=== PATIENT | female | born 1970 | race Caucasian/White ===

== ENCOUNTER → 2020-07-08 | Outpatient (CLI) | payer OTHER ==
[~2020-07-08] MED LIST: COLACE 100MG C100 MG PO; EXCEDRIN MIGRA1 EACH PO; FLUZONE QU60 MCG/015 IM; IBUPROFEN600 MG PO; NORCO 5-325 TA1 EACH PO; NORCO 7.5-3251 EACH PO; ONDANSETRON ODT4 MG PO; OSTERA TABLET1 EACH PO; PROTONIX40 MG PO; TAMIFLU75 MG PO; ZITHROMAX500 MG PO
[2020-07-08 12:08] LABS: HEMOGLOBIN 13.8 gm/dl (12.3-15.3); RED BLOOD COUNT 4.64 M/UL (4.00-5.10); WHITE BLOOD COUNT 7.3 K/UL (4.5-11.0)
[2020-07-08 12:34] LABS: BUN/CREATININE RATIO 23 (0-10)
[2020-07-09 08:15] LABS: VITAMIN D, 25-HYDROXY 65.6 ng/mL (30.0-100.0)
== END ==
LOC: LAB 10:46
PROVIDERS: Family Medicine
DX: E78.5 Hyperlipidemia, unspecified (principal); E55.9 Vitamin D deficiency, unspecified
CPT/HCPCS: 36415; 80053; 80061; 84439; 84443; 84481; 85027

== ENCOUNTER → 2020-07-14 | Outpatient (CLI) | payer OTHER | LOC: RT 11:14 | DX: I48.0 Paroxysmal atrial fibrillation (principal); R00.2 Palpitations ==

== ENCOUNTER → 2020-07-28 | Outpatient (CLI) | payer OTHER | LOC: MAMO 08:25 | DX: Z12.31 Encounter for screening mammogram for malignant neoplasm of breast (principal); Z78.0 Asymptomatic menopausal state | CPT/HCPCS: 77063; 77067 ==

== ENCOUNTER → 2020-07-29 | Outpatient (CLI) | payer OTHER | LOC: CT 08:23 | DX: N20.0 Calculus of kidney (principal); R31.9 Hematuria, unspecified | CPT/HCPCS: Q9963; Q9967 ==

== ENCOUNTER 2021-08-02 18:28 | Emergency (ER) | payer OTHER | END 2021-08-02 21:32 | disposition home or self-care (01) | LOC: ER1 18:28 | DX: S89.92XA Unspecified injury of left lower leg, initial encounter (principal); X50.9XXA Other and unspecified overexertion or strenuous movements or postures, initial encounter; Y92.009 Unspecified place in unspecified non-institutional (private) residence as the place of occurrence of the external cause | CPT/HCPCS: 29530; 73564; 99283 ==

== ENCOUNTER → 2021-08-12 | Outpatient (CLI) | payer OTHER | LOC: KOH-I 10:14 | DX: S83.512A Sprain of anterior cruciate ligament of left knee, initial encounter (principal); S83.422A Sprain of lateral collateral ligament of left knee, initial encounter; M67.48 Ganglion, other site | CPT/HCPCS: 73721 ==

== ENCOUNTER → 2021-10-01 | Outpatient (CLI) | payer OTHER | LOC: HEART 5 15:29 | DX: R07.9 Chest pain, unspecified (principal); R53.83 Other fatigue; R06.02 Shortness of breath; I08.1 Rheumatic disorders of both mitral and tricuspid valves | CPT/HCPCS: 93306 ==

== ENCOUNTER 2021-12-29 08:38 | Emergency (ER) | payer OTHER ==
[2021-12-29 10:11] LABS: HEMOGLOBIN 14.3 gm/dl (12.3-15.3); RED BLOOD COUNT 4.69 M/UL (4.00-5.10); WHITE BLOOD COUNT 9.5 K/UL (4.5-11.0)
[2021-12-29 10:29] LABS: BUN/CREATININE RATIO 29 (0-10)
[2021-12-29] MEDS ORDERED: IBUPROFEN600 MG PO (13:11)
[2021-12-29] MEDS ORDERED: CYCLOBENZAPRINE10 MG PO (13:11)
== END 2021-12-29 13:16 | disposition home or self-care (01) ==
LOC: ER1 08:38
PROVIDERS: Physician Assistant
DX: M54.50 Low back pain, unspecified (principal); Z87.442 Personal history of urinary calculi; I10 Essential (primary) hypertension; Z90.89 Acquired absence of other organs; Z90.49 Acquired absence of other specified parts of digestive tract; Z20.822 Contact with and (suspected) exposure to COVID-19
CPT/HCPCS: 80053; 81001; 85025; 87086; 96374; 96375; 99284; J2405; Q9967; U0002

== ENCOUNTER 2022-01-03 18:05 | Emergency (ER) | payer OTHER ==
[~2022-01-03 18:05] MED LIST changes: +CYCLOBENZAPRINE10 MG PO
[2022-01-03 19:13] LABS: HEMOGLOBIN 13.8 gm/dl (12.3-15.3); RED BLOOD COUNT 4.54 M/UL (4.00-5.10); WHITE BLOOD COUNT 6.9 K/UL (4.5-11.0)
[2022-01-03 19:21] LABS: BUN/CREATININE RATIO 22 (0-10)
[2022-01-03] MEDS ORDERED: ZOFRAN 4 MG TAB4 MG PO (22:09)
[2022-01-03] MEDS ORDERED: PAXLOVID 300-11 EACH PO (22:09)
== END 2022-01-03 22:41 | disposition home or self-care (01) ==
LOC: ER1 18:05
PROVIDERS: Physician Assistant Medical
DX: U07.1 COVID-19 (principal); M54.50 Low back pain, unspecified; I10 Essential (primary) hypertension; Z90.89 Acquired absence of other organs; Z90.49 Acquired absence of other specified parts of digestive tract; Z87.442 Personal history of urinary calculi
CPT/HCPCS: 80053; 81001; 83605; 85025; 87040; 93005; 99284; U0002